=== PATIENT | female | born 1940 | race Caucasian/White ===

== ENCOUNTER 2016-06-20 23:55 | Inpatient (IN) | payer MEDICARE, BC ==
--- NOTE | ~2016-06-20 | CR72 ---
[facility] A Service of [facility] RADIOLOGY TEXT RESULTS PATIENT: LINDSAY HAYNES LOCATION: [place] [address] : [birth year] UNIT #: [id number] AGE: [address]: Benjamin Burns MD SEX: F ORDER DR: [id number] [facility] [address] [facility]. [place], [place] [address] [id number] I MR#: [id number] #: [id number] NAME: LINDSAY HAYNES. : 1940 SEX: F STUDY DATE/TIME: 06/21/2016 01:12 UNIT: CEDOF ROOM: 12508 STUDY DESCRIPTION: CR Chest Single View Portable Attending Physician: Benjamin Burns M.D. Ordering Physician: Julita Ramos M.D. Primary Care Physician: Daisy Kruse M.D. MEDICAL IMAGING REPORT This report is preliminary unless electronic signature is present EXAM Portable chest 06/21/2016 01:12 INDICATION Fever, shortness of air and mental status changes for 2 days. FINDINGS AP portable chest is compared with 06/17/2016. Cardiomegaly stable. Lungs are clear. No pneumothorax. Patient is status post mid thoracic kyphoplasty. Postoperative changes are also present in the right shoulder. IMPRESSION No active disease and no interval change. Dictated by... Dilip Perez Jr., M.D. THIS IS AN ELECTRONICALLY VERIFIED REPORT Dilip Perez Jr., M.D. at 06/21/2016 8:44 PM SANDI/flora TD: 06/21/2016 11:13 JOB #: [id number] MEDICAL IMAGING REPORT COPY
--- NOTE | ~2016-06-20 | DS ---
Unit #: [id number] #: [id number] Patient: LINDSAY HAYNES [id number] [address] [place], [place] [address] [id number] I MR#: [id number] NAME: LINDSAY HAYNES. ROOM: 226 Age: 75 Sex: F Admission Date: 06/20/2016 : 1940 Discharge Date: 06/22/2016 Attending Physician: Benjamin Burns M.D. Primary Care Physician: Daisy Kruse M.D. DISCHARGE SUMMARY DISCHARGE DIAGNOSES 1. Toxic metabolic encephalopathy. 2. Urinary tract infection. 3. Neurogenic bladder. 4. Type 2 diabetes. HOSPITAL COURSE The patient is a 75-year-old female who presented to [facility] Emergency Department with confusion. This was pretty typical for her when she has urinary tract infection, which was noted to be the case on UA. The patient was started on IV antibiotics and admitted. The patient's mental status returned to baseline relatively quickly. Her workup revealed gram-negative rods in culture. She has responded well to Rocephin and has been discharged home on Keflex. Of note, the patient does seem to have frequent urinary tract infections and also has a history of a neurogenic bladder. The patient does not appear to be receiving straight caths as frequently as she should. Family states that she is cathed 2-3 times a week. There was some confusion given that she does seem to make urine; however, this is likely secondary to overflow. The patient received a "postvoid residual," and 620 mL of urine was returned. I have placed a Lorenzana catheter and asked the patient to follow up with urology. DISCHARGE MEDICATIONS 1. Keflex 500 mg p.o. q.i.d. 2. Zocor 20 mg p.o. q.h.s. 3. Aspirin 81 mg daily. 4. Amitriptyline 25 mg p.o. q.h.s. 5. Horizant 600 mg 2 tabs p.o. q.h.s. 6. Probiotic daily. 7. Protonix 40 mg daily. 8. Lasix 40 mg daily. FOLLOWUP The patient should follow up with Dr. Jose Welch this week. Additionally, I have sent her home with home health to help with Lorenzana maintenance. Dictated by... Unit #: [id number] #: [id number] Patient: LINDSAY HAYNES M.D. CAM/lucius TD: 06/23/2016 13:06 JOB #: [id number] DISCHARGE SUMMARY X Benjamin Burns MD X DISCHARGE SUMMARY
--- NOTE | ~2016-06-20 | HP ---
Unit #: [id number] #: [id number] Patient: LINDSAY HAYNES [id number] [address] [place], [place] [address] [id number] MR#: [id number] NAME: LINDSAY HAYNES. ROOM: 226 Age: 75 Sex: F Admission Date: 06/21/2016 : 1940 Attending Physician: Benjamin Burns M.D. Primary Care Physician: Daisy Kruse M.D. HISTORY AND PHYSICAL CHIEF COMPLAINT Confusion. HISTORY OF PRESENT ILLNESS The patient is a 75-year-old female who presents to [facility] emergency department with acute onset of confusion. She was just discharged from this facility on 06/19/2016 where she had been admitted for a GI bleed. She does have a history of recurrent urinary tract infections but did have a completely normal urinalysis on 06/17/2016, just 4 days prior to readmission. In the emergency department, urinalysis was done and patient was noted to have a urinalysis "very" consistent with UTI. The patient is confused and unable to provide a history. PAST MEDICAL HISTORY 1. Frequent UTIs with history of associated toxic metabolic encephalopathy. 2. Probable sleep apnea with chronic lung disease on as needed oxygen. 3. History of iron-deficiency anemia. 4. 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 5. Degenerative joint disease. 6. Hyperlipidemia. 7. Stress Cardiolite in August 2014 revealing low likelihood for anterior wall ischemia and ejection fraction of 55%. 8. Remote history of DVT and PE. 9. Kyphoplasty for T9 compression fracture. 10. Cataract extraction. 11. Right shoulder surgery. 12. Right knee surgery. 13. Cholecystectomy. HOME MEDICATIONS 1. Lasix 40 mg daily. 2. Probiotic daily. 3. Long-acting gabapentin 600 mg h.s. 4. Amitriptyline 25 mg p.o. h.s. 5. Zocor 20 mg p.o. h.s. 6. Aspirin 81 mg daily. 7. Protonix 40 mg daily. ALLERGIES No known drug allergies. Unit #: [id number] #: [id number] Patient: LINDSAY HAYNES SOCIAL HISTORY The patient lives with a son. She is a reformed smoker having had no tobacco for the past 20 years. No alcohol or illicit drug use. FAMILY HISTORY Coronary artery disease. REVIEW OF SYSTEMS Unable to obtain. PHYSICAL EXAMINATION VITAL SIGNS: Temperature 98.2, pulse 93, blood pressure 142/68. GENERAL: This is a 75-year-old female in no acute distress who appears stated age. HEENT: Pupils equally round. Extraocular movements are intact. Mucous membranes are dry. NECK: Supple. No JVD, no lymphadenopathy. HEART: Regular rate and rhythm, no murmurs, gallops or rubs. LUNGS: Clear to auscultation bilaterally. ABDOMEN: Mildly tender in the suprapubic region, otherwise, nondistended, soft. EXTREMITIES: No clubbing, cyanosis, or edema. Warm and dry. PSYCHIATRIC: Alert and oriented x1. Affect is flat. NEUROLOGIC: Cranial nerves II-XII are intact grossly. The patient moves all extremities equally and with purpose. SKIN: No rashes, bruises, or ulcers. MUSCULOSKELETAL: No muscle or joint pain, no muscle or joint swelling. DIAGNOSTIC STUDIES LABORATORY: Chemistries are essentially normal. CBC shows a white count of 18.5, hemoglobin 8.6, which appears to be her baseline. Coagulation studies are normal. As mentioned above, urinalysis seems consistent with urinary tract infection. IMAGING: Chest x-ray shows no acute disease. ASSESSMENT AND PLAN 1. Toxic metabolic encephalopathy. This is a recurrent UTI. The patient has a documented completely normal urinalysis 4 days prior to this repeat. It appears the patient has had two urinary tract infections in March of last year, one in April of last year, and one now. Patient has been seen by Urology in the past. I have started her on Rocephin and will follow cultures. 2. Urinary tract infection, as above. Patient started on antibiotics. 3. Neurogenic bladder. Discussion with family reveals that they have been straight cathing her "two or three times a week." I will check a post-void residual and may place a Lorenzana and have the patient follow up with her urologist, Dr. Welch. It sounds like family needs more education regarding her straight cath procedures. 4. Prophylaxis. The patient has been started on SCDs. Dictated by Benjamin Burns M.D. Unit #: [id number] #: [id number] Patient: LINDSAY HAYNES/lissett TD: 06/22/2016 18:11 JOB #: [id number] HISTORY AND PHYSICAL X Benjamin Burns MD X HISTORY AND PHYSICAL
--- NOTE | ~2016-06-20 | EKG ---
PATIENT: LINDSAY HAYNES UNIT #: [id number] Ventricular Rate: 94 BPM Atrial Rate: 94 BPM P-R Interval: 168 ms QRS Duration: 88 ms Q-T Interval: 338 ms QTC Calculation(Bezet): 422 ms P Stuart: 241 degrees Calculated R Stuart: 36 degrees Calculated T Stuart: 59 degrees Diagnosis Line: Unusual P axis, possible ectopic atrial rhythm Diagnosis Line: Abnormal ECG Diagnosis Line: Diagnosis Line: Confirmed by JAYSON DUNAWAY MD ([id number]) on Diagnosis Line: 06/22/2016 5:05:29 PM INTERPRETING MD: RAMAN
[~2016-06-20 23:55] MED LIST: ACETAMINOPHEN PO; ACIDOPHILUS LAC1 CAP PO; ACTOS15 MG PO; AMARYL; AMARYL PO; AMARYL1 MG PO; AMITRYPTYLINE PO; AMOXICILLIN PO; ANTIBIOTIC; ASPIRIN EC81 M1 PO; ASPIRIN81 M1 PO; ASPIRIN81 MG PO; B COMPLEX1 CA1 PO; B-121000 MC1 PO; BACTRIM DS TABL1 TA1; BACTRIM DS TABL1 TA1 PO; CEFTIN PO; CIPRO PO; CIPRO250 MG PO; COUMADIN4 MG PO; D MANNOSE PO; EC-NAPROSYN500 MG PO; FELDENE20 MG PO; FERROUS GLUCON324 MG PO; FOLIC ACID PO; FOLIC ACID1 MG PO; GABAPENTIN600 MG PO; GLIMEPIRIDE1 M1 PO; GLUCOPHAGE500 M1 PO; HYDROCODON-ACE1 EAC1 PO; HYDROGESIC 5/501 CAP PO; KEFLEX PO; KEFLEX500 MG PO; LASIX PO; LASIX20 MG PO; LEVAQUIN PO; LEVAQUIN250 MG PO; LEVAQUIN750 MG PO; LISINOPRIL PO; MACRODANTIN PO; MANNOSE50 GM PO; METFORMIN PO; MIRALAX17 GM PO; MOBIC15 MG PO; NAPROXEN PO; NEURONTIN PO; NEURONTIN600 MG PO; NORCO 7.5/325 T1 TAB PO; ONGLYZA5 MG PO; PROAIR HFA8.5 GM INH; PROBIOTIC1 EAC1 PO; PROBIOTIC1 EACH PO; SIMVASTATIN20 MG PO; SPIRIVA18 MCG INH; VIT E PO; VITAMIN B 12 PO; VITAMIN B-12500 MCG PO; VITAMIN D1000 UNI1 PO; VITAMIN D400 UNI1 PO; VITAMIN D400 UNI2 PO; ZOCOR PO; ZOCOR20 MG PO
[2016-06-21 00:53] LABS: ARTERIAL BLOOD GAS CARBOXY HB 1.1 %sat (0.0-9.0); ARTERIAL BLOOD GAS HCO3 25.9 mmol/L; ARTERIAL BLOOD GAS MET HB 1.4 %sat (0.0-2.0); ARTERIAL BLOOD GAS PCO2 41.6 mmHg (35.0-45.0); ARTERIAL BLOOD GAS PO2 99.3 mmHg (80.0-100); ARTERIAL BLOOD GAS pH 7.402 (7.350-7.450)
[2016-06-21 00:54] LABS: ARTERIAL BLOOD GAS ALLEN TEST NORMAL; ARTERIAL BLOOD GAS ART SITE RIGHT RADIAL; ARTERIAL BLOOD GAS DELIVERY NASAL CANNULA; ARTERIAL DRAW? YES
[2016-06-21 01:33] LABS: POC - CKMB 2.4 ng/mL (0.0-7.9); POC - TROPONIN <0.05 ng/mL (<=0.05)
[2016-06-21 01:49] LABS: BASOPHIL# 0.1 X10e3 (0-0.3); BASOPHIL% 0.8 % (0-2.5); EOSINOPHIL# 0.2 X10e3 (0-0.7); EOSINOPHIL% 0.8 % (0.0-7.0); HEMATOCRIT 27.9 % (35.0-45.0); HEMOGLOBIN 8.6 gm/dL (12.0-16.0); MEAN CELL VOLUME 74.6 FL (83-96); MEAN CORPUSCULAR HEMOGLOBIN 22.9 PG (28-34); MEAN CORPUSCULAR HGB CONC 30.7 g/dL (30-36); MEAN PLATELET VOLUME 7.4 FL (6.5-11.5); MONOCYTE# 1.6 X10e3 (0-1.0); MONOCYTE% 8.6 % (3.0-12.0); NEUTROPHIL# 14.6 X10e3 (1.5-7.1); NEUTROPHIL% 78.8 % (40-75); PLATELET COUNT 381 X10e3 (140-420); RED BLOOD COUNT 3.74 X10e (3.90-5.30); RED CELL DISTRIBUTION WIDTH 19.1 % (11.0-15.5); WHITE BLOOD COUNT 18.5 X10e3 (4.0-10.5)
[2016-06-21 01:50] LABS: DIFF IND YES
[2016-06-21 02:08] LABS: ALBUMIN SERUM 3.3 g/dL (3.5-5.0); BILIRUBIN, DIRECT 0.1 mg/dL (0.0-0.2); BILIRUBIN,INDIRECT 0.6 mg/dL (0.0-0.9); BILIRUBIN,TOTAL 0.7 mg/dL (0.2-2.0); CALCIUM SERUM 8.4 mg/dL (8.4-10.2); GLOM FILT RATE Estimated 57.6 mL/min (>60); MAGNESIUM 1.9 mg/dL (1.6-3.0); POTASSIUM 3.9 mmol/L (3.5-5.1); PROTEIN TOTAL SERUM 6.5 g/dL (6.0-8.3)
[2016-06-21 02:37] LABS: PLATELET ESTIMATE NORMAL (NORMAL)
[2016-06-21 02:38] LABS: ANISOCYTOSIS MOD; POIKILOCYTOSIS MOD; POLYCHROMASIA SL
[2016-06-21 02:51] LABS: PARTIAL THROMBOPLASTIN TIME 27.5 SECONDS (23.5-31.3); PROTHROMBIN TIME (PATIENT) 10.4 SECONDS (9.6-11.5)
[2016-06-21 04:09] LABS: URINE SOURCE CLEAN CATCH
[2016-06-21 04:13] LABS: URINE APPEARANCE TURBID; URINE BILIRUBIN NEG (NEG); URINE BLOOD 3+ (NEG); URINE COLOR YELLOW; URINE GLUCOSE 250 MG/DL (NEG); URINE KETONE NEG (NEG); URINE LEUKOCYTE ESTERASE 3+ (NEG); URINE NITRATE POS (NEG); URINE PROTEIN 1+ (NEG); URINE SPECIFIC GRAVITY 1.022 (1.003-1.035)
[2016-06-21 04:16] LABS: CULTURE INDICATED? YES; URINE BACTERIA AUWI 4+ (NEGATIVE); URINE SQUAMOUS EPITHELIAL CELL FEW /[HPF]; UWBCS1 AUWI INNUM (0-5)
[2016-06-21 04:25] LABS: U HYALINE CASTS AUWI 0-2 /[LPF]
[2016-06-21 06:00] LABS: BASOPHIL# 0.1 X10e3 (0-0.3); BASOPHIL% 0.4 % (0-2.5); EOSINOPHIL# 0.2 X10e3 (0-0.7); HEMATOCRIT 26.9 % (35.0-45.0); HEMOGLOBIN 8.2 gm/dL (12.0-16.0); LYMPHOCYTE# 2.7 X10e3 (1.0-3.5); LYMPHOCYTE% 14.3 % (17.0-45.0); MEAN CELL VOLUME 75.4 FL (83-96); MEAN CORPUSCULAR HEMOGLOBIN 22.9 PG (28-34); MEAN CORPUSCULAR HGB CONC 30.4 g/dL (30-36); MEAN PLATELET VOLUME 7.4 FL (6.5-11.5); MONOCYTE# 1.7 X10e3 (0-1.0); MONOCYTE% 9.3 % (3.0-12.0); NEUTROPHIL# 13.9 X10e3 (1.5-7.1); PLATELET COUNT 381 X10e3 (140-420); RED BLOOD COUNT 3.57 X10e (3.90-5.30); RED CELL DISTRIBUTION WIDTH 19.2 % (11.0-15.5); WHITE BLOOD COUNT 18.6 X10e3 (4.0-10.5)
[2016-06-21 06:01] LABS: DIFF IND NO
[2016-06-21 06:28] LABS: ALBUMIN SERUM 3.1 g/dL (3.5-5.0); BILIRUBIN,TOTAL 0.6 mg/dL (0.2-2.0); CALCIUM SERUM 8.6 mg/dL (8.4-10.2); GLOM FILT RATE Estimated 57.6 mL/min (>60); POTASSIUM 3.5 mmol/L (3.5-5.1); PROTEIN TOTAL SERUM 6.2 g/dL (6.0-8.3)
[2016-06-27] MEDS ORDERED: KEFLEX500 M2 PO (14:47)
[2016-10-29] MEDS ORDERED: FUROSEMIDE40 MG PO (01:01)
[2016-10-29] MEDS ORDERED: PROBIOTIC1 EAC1 PO (01:04)
[2016-10-29] MEDS ORDERED: HORIZANT600 MG PO (01:05)
[2016-10-29] MEDS ORDERED: AMITRYPTYLINE PO (01:06)
[2016-10-29] MEDS ORDERED: ASPIRIN81 M2 PO (01:07)
[2016-10-29] MEDS ORDERED: ZOCOR20 MG PO (01:07)
[2016-10-29] MEDS ORDERED: PROTONIX PO (17:56)
== END 2016-06-22 16:43 | disposition home health service (06) | DRG 689 ==
LOC: CED 23:55 → CEDOF 06-21 04:57 → C2A 06-21 13:10
PROVIDERS: Student in an Organized Health Care Education/Training Program
PROC: 0W3P8ZZ Control Bleeding in Gastrointestinal Tract, Via Natural or Artificial Opening Endoscopic (ICD-10-PCS; principal; 2016-06-21)
PROC: 30233N1 Transfusion of Nonautologous Red Blood Cells into Peripheral Vein, Percutaneous Approach (ICD-10-PCS; 2016-06-21)
PROC: B41BYZZ Fluoroscopy of Other Intra-Abdominal Arteries using Other Contrast (ICD-10-PCS; 2016-06-21)
DX: N39.0 Urinary tract infection, site not specified (principal); G92 Toxic encephalopathy; J44.9 Chronic obstructive pulmonary disease, unspecified; E11.42 Type 2 diabetes mellitus with diabetic polyneuropathy; K31.811 Angiodysplasia of stomach and duodenum with bleeding; E11.40 Type 2 diabetes mellitus with diabetic neuropathy, unspecified; D62 Acute posthemorrhagic anemia; N31.9 Neuromuscular dysfunction of bladder, unspecified; Z79.84 Long term (current) use of oral hypoglycemic drugs; M19.90 Unspecified osteoarthritis, unspecified site; E78.5 Hyperlipidemia, unspecified; Z86.718 Personal history of other venous thrombosis and embolism; Z86.711 Personal history of pulmonary embolism; Z98.49 Cataract extraction status, unspecified eye; Z90.49 Acquired absence of other specified parts of digestive tract; Z79.82 Long term (current) use of aspirin; G47.33 Obstructive sleep apnea (adult) (pediatric); J98.4 Other disorders of lung; Z82.49 Family history of ischemic heart disease and other diseases of the circulatory system; Z87.891 Personal history of nicotine dependence; Z87.440 Personal history of urinary (tract) infections
CPT/HCPCS: 36415; 36430; 36600; 71010; 75726; 75774; 80048; 80053; 80076; 81003; 82550; 82553; 82607; 82728; 82803; 82947; 83540; 83550; 83605; 83690; 83735; 84484; 85025; 85027; 85610; 85730; 86850; 86900; 86901; 86923; 87040; 87086; 87088; 87186; 93005; 94760; 96372; 96374; 96375; 96376; 97116; 97162; 99285; C1725; C1760; C1769; C1887; C9113; G0378; G8978-GP; G8979-GP; J0171; J0696; J1815; J2250; J2916; J3010; J3370; J3420; P9016; Q0138; Q9967

== ENCOUNTER → 2016-10-29 | Outpatient (CLI) | payer MEDICARE, BC ==
[~2016-10-29] MED LIST changes: +ASPIRIN81 M2 PO; +FUROSEMIDE40 MG PO; +HORIZANT600 MG PO; +KEFLEX500 M2 PO; +PROTONIX PO
== END | disposition home or self-care (01) ==
LOC: CSSDAY 09:00
DX: D50.9 Iron deficiency anemia, unspecified (principal); K90.9 Intestinal malabsorption, unspecified; Z79.899 Other long term (current) drug therapy
CPT/HCPCS: 96374; Q0138

== ENCOUNTER → 2016-11-05 | Outpatient (CLI) | payer MEDICARE, BC | END | disposition home or self-care (01) | LOC: CSSDAY 07:15 | DX: D50.9 Iron deficiency anemia, unspecified (principal); K90.9 Intestinal malabsorption, unspecified; Z79.899 Other long term (current) drug therapy | CPT/HCPCS: 96374; Q0138 ==

== ENCOUNTER 2016-11-25 17:14 | Emergency (ER) | payer MEDICARE, BC ==
[~2016-11-25] VITALS: Ht 157.5 cm; Wt 90.7 kg
--- NOTE | ~2016-11-25 | CR173 ---
[facility] A Service of [facility] RADIOLOGY TEXT RESULTS PATIENT: LINDSAY HAYNES LOCATION: [place] : 42 UNIT #: [id number] AGE: [address]: Roselyn Jules APRN SEX: F ORDER DR: [id number] [facility] [address] [facility] [place], [place] [address] [id number] MR#: [id number] #: [id number] NAME: LINDSAY HAYNES. : 1940 SEX: F STUDY DATE/TIME: 11/25/2016 20:08 UNIT: [facility] ROOM: STUDY DESCRIPTION: CR Knee 3 Views Rt Attending Physician: Roselyn Jules A.P.R.N. Ordering Physician: Roselyn Jules A.P.R.N. Primary Care Physician: Daisy Kruse M.D. MEDICAL IMAGING REPORT This report is preliminary unless electronic signature is present EXAM Three views right knee HISTORY Right knee pain anteriorly today after fall. COMMENT Three views of the right knee are reviewed. There are films from earlier today from [facility]. 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 The patient has atherosclerotic vascular calcifications. There is no acute fracture or dislocation. IMPRESSION 1. 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 Findings are not significantly changed from earlier today. No acute fracture or dislocation is suspected. Dictated by... Vida Edge M.D. THIS IS AN ELECTRONICALLY VERIFIED REPORT Vida Edge M.D. at 11/26/2016 11:00 AM HOSEA/sandhya TD: 11/26/2016 08:24 [facility] A Service of [facility] RADIOLOGY TEXT RESULTS PATIENT: LINDSAY HAYNES LOCATION: [facility] : 41 UNIT #: [id number] AGE: [address]: Roselyn Jules APRN SEX: F ORDER DR: JOB #: [id number] MEDICAL IMAGING REPORT Page 1 of 1 COPY
== END 2016-11-25 21:31 | disposition home or self-care (01) ==
LOC: CFTX 17:14 → CED 17:14 → CFTX 19:51
DX: S80.01XA Contusion of right knee, initial encounter (principal); E78.5 Hyperlipidemia, unspecified; F03.90 Unspecified dementia, unspecified severity, without behavioral disturbance, psychotic disturbance, mood disturbance, and anxiety; D64.9 Anemia, unspecified; E11.40 Type 2 diabetes mellitus with diabetic neuropathy, unspecified; N31.9 Neuromuscular dysfunction of bladder, unspecified; Z90.710 Acquired absence of both cervix and uterus; Z90.49 Acquired absence of other specified parts of digestive tract; Z98.890 Other specified postprocedural states; Z79.82 Long term (current) use of aspirin; Z79.899 Other long term (current) drug therapy; W01.0XXA Fall on same level from slipping, tripping and stumbling without subsequent striking against object, initial encounter
CPT/HCPCS: 29530; 73562; 99283